=== PATIENT | female | born 1965 | race Caucasian/White ===

== ENCOUNTER 2021-06-08 12:17 | Emergency (ER) | payer SELFPAY ==
[2021-06-08 12:25] VITALS: BP 180/119; PULSE 98; RESP 18; TEMP 36.3; O2SAT 99; BMI 31.9
--- NOTE | 2021-06-08 12:38 | W.ED.GENADLT ---
HPI - General Adult General: Chief complaint: Abdominal Pain Stated complaint: diarrhea/nausea/vomiting/hallucinations Time Seen by Provider: 06/08/21 12:29 History of Present Illness: Patient is a 56-year-old female with a history of cholecystectomy, hysterectomy presenting to the emergency room with generalized abdominal pain x4 days now with nausea, vomiting and diarrhea. Patient tells me that since yesterday night, her abdominal pain has worsened. Patient reports upper and lower abdominal pain. Patient also has significant nausea and vomiting has had multiple episodes today. Patient denies any melena or hematochezia but of report loose to watery stool. Patient also reports pus in the urine. Patient denies any fever or chills, cough, runny nose, sore throat, chest pain, shortness breath, palpitation or lightheadedness. No other focal complaints at this time. Onset:4 days ago Duration:ongoing Location:home Severity:moderate Associated symptoms: Reports nausea and vomiting; Deny chest pain, dyspnea, rash or palpitations Review of Systems Const: Denies: fever(s) or chills Eyes: Denies: change in vision ENMT: Denies: mouth pain Card: Denies: chest pain or palpitations Resp: Denies: dyspnea or non-productive cough GI: Reports: abdominal pain, nausea, vomiting and diarrhea : Denies: dysuria Musc: Denies: extremity pain Skin/Breast: Denies: rash or new lesions Neuro: Denies: weakness in extremities Psych: Reports: other (Normal mood) Abram/Lymph: Denies: easy bruising PFSH ED PFSH: Surgical History (Updated 06/08/21 @ 12:40 by Lisa Gee MD) H/O: hysterectomy Status post cholecystectomy Social History (Updated 06/08/21 @ 12:40 by Lisa Gee MD) Smoking and tobacco status: never smoked Alcohol intake: never Substance/Drug Use: never Physical Exam Const: COMMON NORMALS: alert HENMT: COMMON NORMALS: atraumatic HEAD & SCALP: atraumatic MOUTH: moist mucous membranes abnormal Eye: COMMON NORMALS: EOMs intact bilaterally and conjunctivae normal CONJUNCTIVA: Yes conjunctivae normal Neck/C-Spine: COMMON NORMALS: full ROM and supple Resp: COMMON NORMALS: normal respiratory effort and clear to auscultation bilaterally AUSCULTATION: clear to auscultation bilaterally Cardio: RATE: tachycardic GI: COMMON NORMALS: Soft to palpation PALPATION: Yes Soft to palpation OTHER: Diffuse mild TTP. NO guarding rebound, guarding, rigidity. No CVA tenderness to percussion. Neg Barton/Neg McBurney's point tenderness, no suprabupic tenderness to palpation. Extremity: COMMON NORMALS: full ROM Neuro: SENSORIUM/ORIENTATION: Yes alert MOTOR EXAM: No Abnormal motor strength present and Other motor observations present (no focal motor deficits) Psych: COMMON NORMALS: speech normal SPEECH: Yes normal speech MOOD & AFFECT: Yes euthymic mood Course Vital Signs: Vital signs: Vital Signs Temperature 98.4 F 06/08/21 18:43 Pulse Rate 96 06/08/21 18:43 Respiratory Rate 15 06/08/21 18:43 Blood Pressure 183/104 06/08/21 18:43 Pulse Oximetry 95 06/08/21 18:43 MDM - General Adult Medical Decision Making 56-year-old female with a history of cholecystectomy hysterectomy presenting to the emergency room 40s and abdominal pain, nausea/vomiting, and diarrhea. On exam, patient appears to be dry is mildly tachycardic. +Mild diffuse abdominal tenderness palpation. White count 15.4. Potassium 2.9. CT abdomen pelvis showed enteritis. Patient received IVF, Pepcid, Zofran, morphine, GI cocktail with significant improvement in symptoms. Patient is able to tolerate p.o. without any difficulty. Tachycardia improved after IVF. Rx tylenol PRN abd pain, maalox/pepcid PRN dyspepsia, and zofran PRN nausea/vomiting Disposition: Discharge. Patient counseled regarding diagnostic impression, treatment plan. Patient given ED strict return precautions to return for continuation, worsening, or development of new symptoms. Instructed to f/u w/ PCP regarding symptoms today. Patient verbalized understanding. Lab Data : 06/08/21 12:55 06/08/21 12:55 Radiology Impressions Abdomen/Pelvis CT 06/08/21 13:08 IMPRESSION: 1. Findings suspicious for nonspecific enteritis or other cause of watery diarrhea. Correlate clinically. 2. Hepatomegaly with mild periportal lymphadenopathy. 3. Colonic diverticula without evidence of acute diverticulitis. Laboratory Results WBC 15.4 10^3/uL (4.0-10.0) H 06/08/21 12:55 RBC 5.46 10^6/uL (4.1-5.3) H 06/08/21 12:55 Hgb 14.9 g/dL (11.5-15.3) 06/08/21 12:55 Hct 45.2 % (37.0-47.0) 06/08/21 12:55 MCV 82.8 fl (81-99) 06/08/21 12:55 MCH 27.3 pg (28.0-34.0) L 06/08/21 12:55 MCHC 33.0 g/dL (30.0-36.0) 06/08/21 12:55 RDW 13.8 % (12.1-15.1) 06/08/21 12:55 Plt Count 361 10^3/cmm (130-400) 06/08/21 12:55 MPV 8.8 fL (7.4-10.4) 06/08/21 12:55 Neut % (Auto) 91.7 % 06/08/21 12:55 Lymph % (Auto) 2.3 % 06/08/21 12:55 [place] % (Auto) 4.2 % 06/08/21 12:55 Eos % (Auto) 1.2 % 06/08/21 12:55 Baso % (Auto) 0.3 % 06/08/21 12:55 Neut # (Auto) 14.15 10^3/uL (1.8-7.7) H 06/08/21 12:55 Lymph # (Auto) 0.4 10^3/uL (0.8-4.8) L 06/08/21 12:55 [place] # (Auto) 0.6 10^3/uL (0.2-0.9) 06/08/21 12:55 Eos # (Auto) 0.2 10^3/uL (0.0-0.8) 06/08/21 12:55 Baso # (Auto) 0.1 10^3/uL (0.0-0.1) 06/08/21 12:55 Nucleated RBC % (auto) 0 % 06/08/21 12:55 Nucleated RBCs # 0.0 /100WBC 06/08/21 12:55 Sodium 139 mmol/L (136-145) 06/08/21 12:55 Potassium 2.9 mmol/L (3.5-5.1) L 06/08/21 12:55 Chloride 97 mmol/L (98-107) L 06/08/21 12:55 Carbon Dioxide 25 mmol/L (22-29) 06/08/21 12:55 Anion Gap 19.9 (5-19) H 06/08/21 12:55 BUN 11 mg/dL (6-20) 06/08/21 12:55 Creatinine 0.7 mg/dL (0.5-0.9) 06/08/21 12:55 GFR Calculation 87.2 mL/min (90-130) L 06/08/21 12:55 Glucose 140 mg/dL (65-115) H 06/08/21 12:55 Calculated Osmolality 290 mOsm/kg (285-295) 06/08/21 12:55 Lactate 2.4 mmol/L (0.5-2.2) H 06/08/21 12:55 Calcium 8.9 mg/dL (8.5-10.5) 06/08/21 12:55 Total Bilirubin 0.6 mg/dL (0.15-1.2) 06/08/21 12:55 AST 20 U/L (0-32) 06/08/21 12:55 ALT 15 U/L (0-33) 06/08/21 12:55 Alkaline Phosphatase 112 IU/L (35-105) H 06/08/21 12:55 Total Protein 7.9 g/dL (6.6-8.7) 06/08/21 12:55 Albumin 4.6 g/dL (3.5-5.2) 06/08/21 12:55 Globulin 3.3 g/dL (1.3-4.6) 06/08/21 12:55 Lipase 23 U/L (13-60) 06/08/21 12:55 Urine HCG, Qual Negative (Negative) 06/08/21 13:20 Imaging Data Other Imaging: Radiologist's impression: [address] [place] [address] CT Scan Report Signed Patient: Vickie Griffith Unit #: [id number] : [id number] Age/Sex: 56 / F ADM Date: 06/08/21 Loc: ER Room/Bed: Attending Dr: Ordering Provider/Ordering MD: Lisa Gee MD Date of Service: 06/08/21 Procedure(s): CT abdomen pelvis w con* [id number] Accession Number(s): [id number] Report Number: [id number] PROCEDURE INFORMATION: Exam: CT Abdomen And Pelvis With Contrast Exam date and time: 06/08/2021 1:36 PM Age: 56 years old Clinical indication: Lower abdominal pain with nausea and vomiting. Status post hysterectomy and cholecystectomy. TECHNIQUE: Imaging protocol: Computed tomography of the abdomen and pelvis with contrast. Radiation optimization: All CT scans at this facility use at least one of these dose optimization techniques: automated exposure control; mA and/or kV adjustment per patient size (includes targeted exams where dose is matched to clinical indication); or iterative reconstruction. Contrast material: OMNI 300; Contrast volume: 95 ml; Contrast route: INTRAVENOUS (IV);? COMPARISON: No relevant prior studies available. RADIATION DOSE METRICS: Total DLP (mGy-cm): 1901.05 FINDINGS: Lungs: There is subsegmental atelectasis or scarring at the left base. Trace pericardial fluid. No hiatal hernia. Liver: The liver is enlarged measuring 21.2 cm. Gallbladder and bile ducts: The gallbladder has been removed. Pancreas: The pancreas is unremarkable. Spleen: The spleen is unremarkable. Adrenal glands: The adrenal glands are unremarkable. Kidneys and ureters: The kidneys are unremarkable. Stomach and bowel: There are numerous nondistended fluid-filled loops of small bowel. There is wall thickening involving a few small bowel loops. There is fluid noted in the ascending and descending colon. These findings are nonspecific but can be seen with enteritis or other causes of watery diarrhea. Correlate clinically. Colonic diverticula without evidence of acute diverticulitis. Appendix: The appendix is unremarkable. Intraperitoneal space: No free intraperitoneal air is seen. Arteries: No abdominal aortic aneurysm. Lymph nodes: A periportal lymph node measures 1.2 x 3.8 cm. Urinary bladder: The bladder is largely decompressed. Reproductive: There has been prior hysterectomy. Bones/joints: No acute fracture is identified. Soft tissues:? No subcutaneous soft tissue swelling is appreciated. CT/CT abdomen pelvis w con* [id number] IMPRESSION: 1. Findings suspicious for nonspecific enteritis or other cause of watery diarrhea. Correlate clinically. 2. Hepatomegaly with mild periportal lymphadenopathy. 3. Colonic diverticula without evidence of acute diverticulitis. ? Dictated By: Justino Villegas Signed By: Justino Villegas Signed Date/Time: 06/08/21 1427 DD/ 1336 Discharge Plan Discharge Patient Disposition: Home Clinical Impression: Abdominal pain, Nausea & vomiting, Diarrhea Condition: Stable Prescriptions: New Pepcid 20 mg tablet 20 mg PO BID PRN (Reason: abdominal pain) 10 Days Qty: 20 0RF ondansetron 4 mg tablet,disintegrating 4 mg PO TID PRN (Reason: nausea and vomiting) 4 Days Qty: 12 0RF Maalox Advanced 1,000-60 mg tablet,chewable 1 tab PO TID PRN (Reason: abdominal pain) 7 Days Qty: 21 0RF No Action losartan 50 mg Tablet 50 mg PO DAILY 0RF potassium chloride 10 mEq Capsule, Extended Release 10 meq PO BID 0RF meloxicam 15 mg Tablet 15 mg PO DAILY 0RF chlorthalidone 25 mg Tablet 25 mg PO DAILY 0RF levothyroxine 125 mcg Tablet 125 mcg PO DAILY 0RF Lexapro 20 mg Tablet 20 mg PO DAILY 0RF Discharge Orders: Discharge ED (Routine); Ordered 06/08/21 Ordered By: Lisa Gee Discharge Diet: Advance as tolerated Discharge Activity: Increase activity as tolerated Patient Instructions: Abdominal Pain (ED) Activity Restrictions/Additional Instructions: Please come back if you have any worsening abdominal pain, fever or chills, nausea or vomiting, diarrhea, blood in the stool, inability hold down liquid or solids, or any new concerning complaints. Stand Alone Forms: Work/School Release Coding Level of Care Code ED [employer] [place] [employer] for Chg Fwd Exam Comprehensive
[2021-06-08] MEDS: ondansetron 2 mg/ML SDV 2 mL 4 MG IVP ×2 (12:55→14:04)
[2021-06-08] MEDS: famotidine 20 mg/2 mL INJ IVP (12:55)
[2021-06-08 12:56] VITALS: RESP 16; O2SAT 97
[2021-06-08] MEDS: morphine 4 mg/mL SDV 1 mL 2 MG IVP ×2 (12:56→14:05)
[2021-06-08] MEDS: sodium chloride 0.9% 1,000 ML 999 ML IV ×2 (12:57→14:52)
[2021-06-08 13:02] LABS: Basophils # 0.1 10^3/uL (0.0-0.1); Basophils % 0.3 %; Eosinophils # 0.2 10^3/uL (0.0-0.8); Eosinophils % 1.2 %; Hematocrit 45.2 % (37.0-47.0); Hemoglobin 14.9 g/dL (11.5-15.3); Lymphocytes # 0.4 10^3/uL (0.8-4.8); Lymphocytes % 2.3 %; Mean Corpuscular Hemoglobin 27.3 pg (28.0-34.0); Mean Corpuscular Volume 82.8 fl (81-99); Mean Platelet Volume 8.8 fL (7.4-10.4); Monocytes # 0.6 10^3/uL (0.2-0.9); Monocytes % 4.2 %; Neutrophils # 14.15 10^3/uL (1.8-7.7); Neutrophils % 91.7 %; Nucleated Red Blood Cells % 0 %; Platelet Count 361 10^3/cmm (130-400); Red Blood Count 5.46 10^6/uL (4.1-5.3); Red Cell Distribution Width 13.8 % (12.1-15.1); White Blood Count 15.4 10^3/uL (4.0-10.0)
--- NOTE | 2021-06-08 13:05 | PC.PHAR ---
PT UNABLE TO VERIFY- CALLED PATIENTS PHARMACY SHE LAST FILLED WITH [facility] [phone]- LAST FILLED 05/15/21 ALL SCRIPTS ON HOME MED LIST.
--- NOTE | 2021-06-08 13:08 | CTR_ITS ---
PROCEDURE INFORMATION: Exam: CT Abdomen And Pelvis With Contrast Exam date and time: 06/08/2021 1:36 PM Age: 56 years old Clinical indication: Lower abdominal pain with nausea and vomiting. Status post hysterectomy and cholecystectomy. TECHNIQUE: Imaging protocol: Computed tomography of the abdomen and pelvis with contrast. Radiation optimization: All CT scans at this facility use at least one of these dose optimization techniques: automated exposure control; mA and/or kV adjustment per patient size (includes targeted exams where dose is matched to clinical indication); or iterative reconstruction. Contrast material: OMNI 300; Contrast volume: 95 ml; Contrast route: INTRAVENOUS (IV); COMPARISON: No relevant prior studies available. RADIATION DOSE METRICS: Total DLP (mGy-cm): 1901.05 FINDINGS: Lungs: There is subsegmental atelectasis or scarring at the left base. Trace pericardial fluid. No hiatal hernia. Liver: The liver is enlarged measuring 21.2 cm. Gallbladder and bile ducts: The gallbladder has been removed. Pancreas: The pancreas is unremarkable. Spleen: The spleen is unremarkable. Adrenal glands: The adrenal glands are unremarkable. Kidneys and ureters: The kidneys are unremarkable. Stomach and bowel: There are numerous nondistended fluid-filled loops of small bowel. There is wall thickening involving a few small bowel loops. There is fluid noted in the ascending and descending colon. These findings are nonspecific but can be seen with enteritis or other causes of watery diarrhea. Correlate clinically. Colonic diverticula without evidence of acute diverticulitis. Appendix: The appendix is unremarkable. Intraperitoneal space: No free intraperitoneal air is seen. Arteries: No abdominal aortic aneurysm. Lymph nodes: A periportal lymph node measures 1.2 x 3.8 cm. Urinary bladder: The bladder is largely decompressed. Reproductive: There has been prior hysterectomy. Bones/joints: No acute fracture is identified. Soft tissues: No subcutaneous soft tissue swelling is appreciated. CT/CT abdomen pelvis w con* [id number] IMPRESSION: 1. Findings suspicious for nonspecific enteritis or other cause of watery diarrhea. Correlate clinically. 2. Hepatomegaly with mild periportal lymphadenopathy. 3. Colonic diverticula without evidence of acute diverticulitis.
[2021-06-08 13:19] LABS: Lactate (Lactic Acid level) 2.4 mmol/L (0.5-2.2)
[2021-06-08 13:26] LABS: Alanine Aminotransferase 15 U/L (0-33); Albumin Level 4.6 g/dL (3.5-5.2); Alkaline Phosphatase 112 IU/L (35-105); Anion Gap 19.9 (5-19); Aspartate Amino Transferase 20 U/L (0-32); Blood Urea Nitrogen 11 mg/dL (6-20); Calcium 8.9 mg/dL (8.5-10.5); Carbon Dioxide 25 mmol/L (22-29); Chloride 97 mmol/L (98-107); Globulin 3.3 g/dL (1.3-4.6); Glomerular Filtration Rate 87.2 mL/min (90-130); Glucose 140 mg/dL (65-115); Lipase 23 U/L (13-60); Osmolality Calculated 290 mOsm/kg (285-295); Sodium 139 mmol/L (136-145); Total Bilirubin 0.6 mg/dL (0.15-1.2); Total Protein 7.9 g/dL (6.6-8.7)
[2021-06-08 13:27] LABS: Potassium 2.9 mmol/L (3.5-5.1)
[2021-06-08] MEDS: iohexol 300 mg/mL 100 mL Btl IV (13:36)
[2021-06-08] MEDS: potassium chloride premix 100 ML 25 MEQ IV (14:04)
[2021-06-08 14:05] VITALS: RESP 15; O2SAT 97
[2021-06-08 14:06] VITALS: BP 176/105; PULSE 104; RESP 15; O2SAT 96
[2021-06-08] MEDS: lidocaine 2% viscous 15 ML, aluminum-mag hydrox-simethicon 30 ML, sucralfate oral liq 1 GM PO (14:53)
[2021-06-08] MEDS: ondansetron 4 MG Tablet 2 MG PO (14:53)
[2021-06-08 17:16] VITALS: BP 184/101; PULSE 94; RESP 15; O2SAT 93
[2021-06-08 18:43] VITALS: BP 183/104; PULSE 96; RESP 15; TEMP 36.9; O2SAT 95
== END 2021-06-08 18:30 | disposition home or self-care (01) ==
PROVIDERS: Emergency Provider Emergency Medicine
DX: K52.9 Noninfective gastroenteritis and colitis, unspecified (principal); R10.9 Unspecified abdominal pain; R11.2 Nausea with vomiting, unspecified; Z90.49 Acquired absence of other specified parts of digestive tract; Z90.710 Acquired absence of both cervix and uterus
CPT/HCPCS: 74177; 80053; 81025; 83605; 83690; 85025; 96365; 96366; 96375; 96376; 99284; J2270; J2405; J3480; J3490; J7030; Q0162; Q9967

== ENCOUNTER → 2021-12-16 11:45 | Outpatient (BNVA) | payer SELFPAY | PROVIDERS: PCP Family Medicine; Visit Provider Nurse Practitioner Family | DX: I10 Essential (primary) hypertension (principal); F41.9 Anxiety disorder, unspecified; F32.A Depression, unspecified; L72.0 Epidermal cyst; L08.9 Local infection of the skin and subcutaneous tissue, unspecified; Z12.39 Encounter for other screening for malignant neoplasm of breast | CPT/HCPCS: 80053; 80061; 83036; 84443; 84484; 85025; 87070; 87077; 87184 ==